=== PATIENT | male | born 1980 | race Caucasian/White ===

== ENCOUNTER 2018-12-01 19:43 | Emergency (ER) | payer SELFPAY ==
[~2018-12-01] VITALS: Ht 180.3 cm; Wt 97.5 kg
[2018-12-01] MEDS ORDERED: TETANUS/DIPHTHERIA TOX ADULT 0.5 ML SYR IM ONE (20:45)
--- NOTE | 2018-12-01 21:27 | Diagnostic Imaging Report ---
Exam: right forearm AP and lateral. History: Mid forearm laceration, nail went into arm Comparison: None. Findings: There is normal bone mineralization. No acute, displaced fracture or dislocation. Joint spaces preserved. No abnormal soft tissue calcification or soft tissue defect. 1.0 cm S-shaped linear metallic density in the subcutaneous tissues of the mid forearm on the ulnar side. No soft tissue swelling. Impression: 1. No acute, displaced fracture or dislocation. 2. No soft tissue defect. 3. 1.0 cm metallic foreign body in the subcutaneous tissues of the mid forearm on the ulnar side Signed by: Dr. Júnior Miranda M.D. on 12/01/2018 9:23 PM
[2018-12-01] MEDS ORDERED: LIDOCAINE 1% W/EPINEPHRINE 20 ML VIAL INJ ONE (22:00)
== END 2018-12-02 00:07 | disposition left against medical advice (07) ==
LOC: ER 19:43
DX: S59.911A Unspecified injury of right forearm, initial encounter (principal); S51.821A Laceration with foreign body of right forearm, initial encounter; W45.0XXA Nail entering through skin, initial encounter
CPT/HCPCS: 99283